=== PATIENT | female | born 1955 | race Caucasian/White ===

== ENCOUNTER → 2018-10-15 07:43 | Outpatient (CLI) | payer OTHER, SELFPAY ==
--- NOTE | 2018-10-15 | DI.MG.S_ITS ---
BILATERAL DIGITAL SCREENING MAMMOGRAM 3D/2D WITH CAD: 10/15/2018 CLINICAL: Routine screening. Comparison is made to exams dated: 10/30/2016 mammogram, 08/22/2015 mammogram, and 08/10/2014 mammogram - [facility]. There are scattered fibroglandular elements in both breasts. Current study was also evaluated with a Computer Aided Detection (CAD) system. There are benign calcifications in the left breast. There also are benign post operative findings in both breasts. No significant masses, calcifications, or other findings are seen in either breast. There has been no significant interval change. IMPRESSION: There is no mammographic evidence of malignancy. A 1 year screening mammogram is recommended. This exam was interpreted at Station ID: [id number]. NOTE: For mammograms, a report in lay terms will be sent to the patient. Approximately 15% of breast malignancies will not be visualized mammographically. In the management of a palpable breast mass, a negative mammogram must not discourage biopsy of a clinically suspicious lesion. Electronically Signed By: Horace garcia/elan:10/15/2018 10:14:25 copy to: [facility] STOCK[facility] letter sent: Normal Exam ACR BI-RADS Category 2: Benign Finding(s) 3342F
== END ==
PROVIDERS: Family Provider Naturopath; PCP Naturopath; Visit Provider Nurse Practitioner Obstetrics & Gynecology
DX: Z12.31 Encounter for screening mammogram for malignant neoplasm of breast (principal)
CPT/HCPCS: 77063; 77067

== ENCOUNTER → 2020-03-31 08:42 | Outpatient (CLI) | payer OTHER, SELFPAY ==
--- NOTE | 2020-03-31 | DI.MG.S_ITS ---
BILATERAL DIGITAL SCREENING MAMMOGRAM 3D/2D WITH CAD: 03/31/2020 CLINICAL: Routine screening. Comparison is made to exams dated: 10/15/2018 mammogram, 10/30/2016 mammogram, and 08/22/2015 mammogram - [facility]. There are scattered fibroglandular elements in both breasts. Current study was also evaluated with a Computer Aided Detection (CAD) system. There is a stable benign focal asymmetry in the right breast. There also are stable benign calcifications in the left breast. No significant masses, calcifications, or other findings are seen in either breast. There has been no significant interval change. IMPRESSION: BENIGN There is no mammographic evidence of malignancy. A 1 year screening mammogram is recommended. This exam was interpreted at Station ID: [id number]. NOTE: For mammograms, a report in lay terms will be sent to the patient. Approximately 15% of breast malignancies will not be visualized mammographically. In the management of a palpable breast mass, a negative mammogram must not discourage biopsy of a clinically suspicious lesion. Electronically Signed By: Henry Patiño acr/penrad:03/31/2020 12:45:10 copy to: [facility] STOCK[facility] letter sent: Normal Exam ACR BI-RADS Category 2: Benign Finding(s) 3342F
== END ==
PROVIDERS: Family Provider Naturopath; PCP Family Medicine; Referring Provider Family Medicine; Visit Provider Family Medicine
DX: Z12.31 Encounter for screening mammogram for malignant neoplasm of breast (principal)
CPT/HCPCS: 77063; 77067

== ENCOUNTER → 2020-05-02 12:41 | Outpatient (CLI) | payer OTHER, SELFPAY ==
--- NOTE | 2020-05-02 | DI.US.S_ITS ---
PROCEDURE: US RENAL COMPLETE INDICATIONS: PELVIC AND PERINEAL PAIN. TECHNIQUE: Real-time scanning was performed of the kidneys and bladder, with image documentation. COMPARISON: None. FINDINGS: Kidneys: Kidneys are normal in size. Right kidney measures 11.6 cm long; left kidney measures 11.4 cm long. Right renal cortical thickness is 1.2 cm; left renal cortical thickness is 1.1 cm. Renal cortical echotexture is normal. No hydronephrosis or nephrolithiasis. Small 0.3 x 0.4 x 0.3 centimeter hyperechoic lesion noted in the inferior lobe of the right kidney which may represent small renal angiomyolipoma. Bladder: Pre-void bladder volume is 370 mL. Post-void residual is 3 mL. Pre-void images demonstrate no intraluminal masses or stones. On pre-void images, both right and left ureteral jets are noted with color Doppler interrogation. (Of note, ureteral jets may not be detectable in up to 25% of cases due to insufficient differences in specific gravity between ureteral and bladder urine). Miscellaneous: No free pelvic fluid. IMPRESSION: 1. 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 2. Otherwise, normal renal sonogram. Dictated by: Leela Montes MD, PhD on 05/02/2020 at 16:44 Approved by: Leela Montes MD, PhD on 05/02/2020 at 16:46
== END ==
PROVIDERS: Family Provider Naturopath; PCP Family Medicine; Referring Provider Nurse Practitioner Family; Visit Provider Nurse Practitioner Family
DX: R10.2 Pelvic and perineal pain (principal)
CPT/HCPCS: 76770

== ENCOUNTER → 2020-05-25 08:08 | Outpatient (CLI) | payer MEDICARE, OTHER, SELFPAY ==
--- NOTE | 2020-05-25 | DI.MRI.S_ITS ---
PROCEDURE: MR ABDOMEN WO/W CON INDICATIONS: BENIGN LIPOMATOUS NEOPLASM OF KIDNEY TECHNIQUE: Coronal HASTE through abdomen and pelvis; axial 2D FLASH in- and [id number] (with and without fat saturation), and breath-hold T2 FSE from the hepatic dome to the bottom of the kidneys. Coronal HASTE MR urogram of kidneys and bladder. Dynamic coronal VIBE during IV gadolinium administration; postgadolinium axial VIBE or 2D FLASH with fat saturation from the hepatic dome through the kidneys. COMPARISON: [facility], , US RENAL COMPLETE, 05/02/2020, 13:07. FINDINGS: Image quality: Excellent. Genitourinary system: The kidneys are normal in size and enhancement. No suspicious solid masses. There is a miniscule, nonenhancing round T2 hyperintensity in the corticomedullary parenchyma of the right midpole laterally measuring 4 mm. This demonstrates low T1 signal on out of phase imaging, but no significant high T1 signal intensity. No enhancement. The calices appear normal. No hydronephrosis. Other solid organs: The liver, adrenal glands, spleen, and pancreas are normal. Normal gallbladder and biliary system. Nodes and vessels: Abdominal aorta and inferior vena cava are normal caliber. No retroperitoneal or mesenteric adenopathy. Bowel and peritoneum: The stomach and visible loops of bowel have a normal MR appearance. No evidence of obstruction. Lung bases: Normal heart size. No hiatal hernia. No basal effusions. Bones and soft tissues: Degenerative change at the L4-5 disc level within the vertebral bodies. Otherwise normal marrow signal. IMPRESSION: 1. Tiny right renal lesion, incompletely evaluated on MR secondary to its small size, likely a cyst based on MR characteristics. Lesion found on ultrasound is likely a tiny angiomyolipoma, in the correlation between two studies is questionable. Neither of these lesions are likely to be clinically significant at this size. Follow-up renal ultrasound in one year to assess for any size change could be considered. Dictated by: Rebecca Mathews M.D. on 05/25/2020 at 11:06 Approved by: Rebecca Mathews M.D. on 05/25/2020 at 11:25
== END ==
PROVIDERS: Family Provider Naturopath; PCP Family Medicine; Referring Provider Nurse Practitioner Family; Visit Provider Nurse Practitioner Family
DX: D17.71 Benign lipomatous neoplasm of kidney (principal)
CPT/HCPCS: 74183

== ENCOUNTER → 2021-04-26 07:53 | Outpatient (CLI) | payer MEDICARE, OTHER, SELFPAY ==
--- NOTE | 2021-04-26 | DI.MG.S_ITS ---
BILATERAL DIGITAL SCREENING MAMMOGRAM 3D/2D WITH CAD: 04/26/2021 CLINICAL: Routine screening. Comparison is made to exams dated: 03/31/2020 mammogram, 10/15/2018 mammogram, and 10/30/2016 mammogram - [facility]. There are scattered fibroglandular elements in both breasts. Current study was also evaluated with a Computer Aided Detection (CAD) system. There is a stable benign focal asymmetry in the right breast. There also are stable benign calcifications in the left breast. No significant masses, calcifications, or other findings are seen in either breast. There has been no significant interval change. IMPRESSION: BENIGN There is no mammographic evidence of malignancy. A 1 year screening mammogram is recommended. This exam was interpreted at Station ID: [id number]. NOTE: For mammograms, a report in lay terms will be sent to the patient. Approximately 15% of breast malignancies will not be visualized mammographically. In the management of a palpable breast mass, a negative mammogram must not discourage biopsy of a clinically suspicious lesion. Electronically Signed By: Bandar riley/elan:04/26/2021 09:11:32 copy to: [facility] letter sent: Normal Exam ACR BI-RADS Category 2: Benign Finding(s) 3342F
== END ==
PROVIDERS: Family Provider Naturopath; PCP Family Medicine; Referring Provider Family Medicine; Visit Provider Family Medicine
DX: Z12.31 Encounter for screening mammogram for malignant neoplasm of breast (principal)
CPT/HCPCS: 77063; 77067

== ENCOUNTER → 2021-06-29 07:49 | Outpatient (CLI) | payer MEDICARE, OTHER, SELFPAY ==
--- NOTE | 2021-06-29 | DI.US.S_ITS ---
PROCEDURE: US RENAL COMPLETE INDICATIONS: Benign lipomatous neoplasm of kidney TECHNIQUE: Real-time scanning was performed of the kidneys and bladder, with image documentation. COMPARISON: [facility], , US RENAL COMPLETE, 05/02/2020, 13:07. FINDINGS: Kidneys: Kidneys are normal in size. Right kidney measures 12.4 cm long; left kidney measures 11.6 cm long. Right renal cortical thickness is 1.9 cm; left renal cortical thickness is 1.5 cm. Renal cortical echotexture is normal. No hydronephrosis. 6.5 millimeter nonobstructing stone noted in the midpole of the right kidney. 5 x 3 millimeter hyperechoic lesion in the inferior lateral margin of the right kidney is not significantly changed compared to prior examination likely represents renal angiomyolipoma. Bladder: Pre-void bladder volume is 34 mL. Post-void residual is 0 mL. Pre-void images demonstrate no intraluminal masses or stones. On pre-void images, neither the right nor the left ureteral jets are noted with color Doppler interrogation. (Of note, ureteral jets may not be detectable in up to 25% of cases due to insufficient differences in specific gravity between ureteral and bladder urine). Miscellaneous: No free pelvic fluid. IMPRESSION: 1. 6.5 millimeter nonobstructing right renal stone. 2. No hydronephrosis. 3. 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 Dictated by: Leela Montes MD, PhD on 06/29/2021 at 10:37 Approved by: Leela Montes MD, PhD on 06/29/2021 at 10:39
== END ==
PROVIDERS: Family Provider Naturopath; PCP Family Medicine; Referring Provider Family Medicine; Visit Provider Family Medicine
DX: D17.71 Benign lipomatous neoplasm of kidney (principal); N20.0 Calculus of kidney
CPT/HCPCS: 76770

== ENCOUNTER → 2022-05-29 11:08 | Outpatient (CLI) | payer MEDICARE, OTHER, SELFPAY ==
--- NOTE | 2022-05-29 | DI.MG.S_ITS ---
BILATERAL DIGITAL SCREENING MAMMOGRAM 3D/2D WITH CAD: 05/29/2022 CLINICAL: Routine screening. Comparison is made to exams dated: 04/26/2021 mammogram, 03/31/2020 mammogram, 10/15/2018 mammogram, and 10/30/2016 mammogram - [facility]. There are scattered areas of fibroglandular density in both breasts (category b / 25%-50% glandular tissue). Current study was also evaluated with a Computer Aided Detection (CAD) system. No significant masses, calcifications, or other findings are seen in either breast. There has been no significant interval change. IMPRESSION: NEGATIVE There is no mammographic evidence of malignancy. A 1 year screening mammogram is recommended. Based on the Tyrer Cuzick model (a risk assessment model) the patient's lifetime risk is 4.7% and her 10 year risk is 2.5%. According to the ACR, ACS, and NCCN guidelines, an annual breast MRI exam along with mammogram is recommended if the patient's lifetime risk is 20% or greater. This exam was interpreted at Station ID: [id number]. NOTE: For mammograms, a report in lay terms will be sent to the patient. Approximately 15% of breast malignancies will not be visualized mammographically. In the management of a palpable breast mass, a negative mammogram must not discourage biopsy of a clinically suspicious lesion. Electronically Signed By: Jam martell/elan:05/29/2022 16:30:05 copy to: [facility] letter sent: Normal Exam ACR BI-RADS Category 1: Negative 3341F
== END ==
PROVIDERS: Family Provider Naturopath; PCP Family Medicine; Referring Provider Family Medicine; Visit Provider Family Medicine
DX: Z12.31 Encounter for screening mammogram for malignant neoplasm of breast (principal)
CPT/HCPCS: 77063; 77067

== ENCOUNTER → 2022-08-29 11:30 | Outpatient (CLI) | payer MEDICARE, OTHER, SELFPAY ==
--- NOTE | 2022-08-29 11:35 | DI.RAD.S_ITS ---
Bone Density Report Name: KVNG SCOTT Age: 67 Sex: Female Ethnicity: White Date of : 1955 Indication: postmenopausal; screening for osteoporosis; parental hip fracture; Referring Provider: MARIO GASPAR Study: Bone densitometry was performed. Exam Date: August 29, 2022 Accession number: [id number] Bone Density: Region BMD T-score Z-score Classification AP Spine(L1-L4) 0.937 -1.0 0.9 Normal Femoral Neck (Left) 0.720 -1.2 0.5 Osteopenia Total Hip (Left) 0.902 -0.3 1.0 Normal Femoral Neck (Right) 0.745 -0.9 0.7 Normal Total Hip (Right) 0.890 -0.4 0.9 Normal Total Hip Mean 0.896 -0.4 1.0 Normal World Health Organization criteria for BMD impression classify patients as: Normal (T-score at or above -1.0), Osteopenia (T-score between -1.0 and -2.5), or Osteoporosis (T-score at or below -2.5). 10-year Fracture Risk(1): Major Osteoporotic Fracture 16% Hip Fracture 1.3% Reported Risk Factors: [place] (), Neck BMD=0.720, BMI=25.1, parental fracture (1) FRAX(R) Version 3.08. Fracture probability calculated for an untreated patient. Fracture probability may be lower if the patient has received treatment. Previous Exams: -- Region Exam Age BMD T-score BMD Change BMD Change Date g/cm2 vs Baseline vs Previous -- AP Spine (L1-L4) 08/29/2022 67 0.937 -1.0 -0.229 (-19.7%)# -0.229 (-19.7%)# 05/12/2006 50 1.166 1.1 Total Hip(Left) 08/29/2022 67 0.902 -0.3 -0.127 (-12.4%)# -0.127 (-12.4%)# 05/12/2006 50 1.029 0.7 Total Hip(Right) 08/29/2022 67 0.890 -0.4 -0.178 (-16.7%)# -0.178 (-16.7%)# 05/12/2006 50 1.067 1.0 -- *Denotes significance at 95% confidence level, LSC for AP Spine = 0.022 g/cm2, LSC for Total Hip = 0.027 g/cm2 # Denotes dissimilar scan types or analysis methods Impression: The patient has low bone mass, based on the Left Femoral Neck T-score. The patient has an estimated ten-year risk of hip fracture of 1.3% and an estimated ten-year risk of major fracture of 16%, based on the WHO FRAX algorithm. The patient has risk factors, including: parental hip fracture. No significant bone loss was observed. Discussion: BONE DENSITY IS LOW AT ONE OR MORE SKELETAL SITES. This patient's lowest T-score is low at one or more skeletal sites. It meets the World Health Organization's (WHO) criteria for low bone mass (T-score between -1.0 and -2.5). The patient's 10-year risk of fracture as calculated by FRAX is less than the threshold where pharmacological therapy is recommended by the National Osteoporosis Foundation (NOF). However, all treatment decisions require clinical judgment and consideration of individual patient factors, including patient preferences, comorbidities, previous drug use, risk factors not captured in the FRAX model (e.g., frailty, falls, vitamin D deficiency, increased bone turnover, interval significant decline in bone density) and possible under or overestimation of fracture risk by FRAX. The patient should follow a healthful lifestyle (good nutrition with adequate calcium and vitamin D, and appropriate weight-bearing exercise). Follow-Up: Consider repeating this study in 2 to 3 years to reassess this patient's status, or sooner if there is some new clinical indication. Reported by: SHANNA WATT M.D. on 08/29/2022 12:46:00 PM.
== END ==
PROVIDERS: Family Provider Naturopath; PCP Family Medicine; Referring Provider Internal Medicine; Visit Provider Internal Medicine
DX: Z78.0 Asymptomatic menopausal state (principal); Z13.820 Encounter for screening for osteoporosis; M85.852 Other specified disorders of bone density and structure, left thigh
CPT/HCPCS: 77080

== ENCOUNTER → 2022-11-14 10:13 | Outpatient (CLI) | payer MEDICARE, OTHER, SELFPAY ==
--- NOTE | 2022-11-14 | DI.RAD.S_ITS ---
PROCEDURE: XR CHEST 2V INDICATIONS: PRECORDIAL PAIN TECHNIQUE: 2 views of the chest were acquired. COMPARISON: [facility], , CHEST 1 VIEW, 10/13/2015, 13:34. FINDINGS: Surgical changes and devices: None. Lungs and pleura: Lungs are clear. No pleural effusions or pneumothorax. Mediastinum: Mediastinal contours are normal. Heart size is normal. Bones and chest wall: No suspicious bony abnormalities. Soft tissues appear unremarkable. IMPRESSION: No acute cardiopulmonary abnormality is seen. Dictated by: Pablo Garay M.D. on 11/14/2022 at 12:30 Approved by: Pablo Garay M.D. on 11/14/2022 at 12:31
== END ==
PROVIDERS: Family Provider Naturopath; PCP Family Medicine; Referring Provider Family Medicine; Visit Provider Family Medicine
DX: R07.2 Precordial pain (principal)
CPT/HCPCS: 71046

== ENCOUNTER → 2022-11-29 09:44 | Outpatient (CLI) | payer MEDICARE, OTHER, SELFPAY ==
--- NOTE | 2022-11-29 20:11 | DI.NM.S_ITS ---
DATE OF SERVICE: 11/29/2022 PROCEDURE: Exercise treadmill stress and rest myocardial perfusion imaging study with gating to assess ejection fraction and regional wall motion. ORDERING PROVIDER: Luke Queen MD. INDICATIONS: The patient is a 67-year-old hypertensive female with atypical chest and jaw discomfort. CARDIAC STRESS: The patient was able to exercise for 8 minutes, 16 seconds on a standard Kam protocol, suggesting excellent exercise capacity with an MEJIA of -35%, achieving 10.1 METS. She had a normal heart rate response to exercise, achieving a maximum of 162 BPM (106% of her predicted maximum). She had a borderline hypertensive blood pressure response with a resting blood pressure of 130/80 that increased to a maximum of 200/90. Her resting ECG shows a sinus rhythm with borderline repolarization abnormality that becomes slightly accentuated with stress with [address] depression that resolves within 1 minute of recovery and thus is nonspecific for ischemia. There were no arrhythmias. At 7 minutes, 15 seconds of exercise at a heart rate of 157 BPM, 27.5 mCi of technetium-99m Myoview was injected and she was imaged 10 minutes later using a gated SPECT acquisition protocol. Earlier in the day while at rest, she had been injected with 11.3 mCi of technetium-99m Myoview was imaged 20 minutes later, again using a gated SPECT acquisition protocol. FINDINGS: 1. Raw data: There is fairly good myocardial tracer uptake, although breast shadows are noted, particularly on the resting images. The lung/heart ratio is normal at 0.34 with a normal TID ratio of 0.82. 2. Quantitated gated SPECT: Post-stress ejection fraction is 84% without any focal wall motion abnormality. Resting ejection fraction is 76% with a normal resting end-diastolic volume of 63 mL. 3. Myocardial perfusion imaging: Post-stress supine images shows a fairly normal myocardial perfusion pattern without any concerning perfusion defects, supported by normal perfusion imaging in the prone position. The resting images show a modest defect in the distal portion of the left ventricle, likely reflecting breast attenuation artifact, but there are no areas of significant improvement. IMPRESSION: 1. Normal myocardial perfusion study. 2. No evidence for any myocardial ischemia or previous myocardial infarction. 3. Normal left ventricular size and function without any focal wall motion abnormality. 4. Excellent exercise capacity without angina or significant ECG evidence of ischemia. She had a borderline hypertensive blood pressure response to exercise. Jos, May Pratima/codey doc#: [id number]/job#: [id number] dd: 11/29/2022 17:09:00 dt: 11/29/2022 19:52:00 DICTATING MD/COPIES TO: Luke Malone MD; Luke Queen MD COPIES MNE: MARIKA;
== END ==
PROVIDERS: Family Provider Naturopath; PCP Family Medicine; Referring Provider Family Medicine; Visit Provider Family Medicine
DX: R07.9 Chest pain, unspecified (principal)
CPT/HCPCS: 78452; 93017; A9502

== ENCOUNTER → 2023-06-25 16:27 | Outpatient (CLI) | payer MEDICARE, OTHER, SELFPAY ==
--- NOTE | 2023-06-25 16:28 | DI.MG.S_ITS ---
BILATERAL DIGITAL SCREENING MAMMOGRAM 3D/2D WITH CAD: 06/25/2023 CLINICAL: Routine screening. Comparison is made to exams dated: 05/29/2022 mammogram, 04/26/2021 mammogram, and 03/31/2020 mammogram - [facility]. There are scattered areas of fibroglandular density in both breasts (category b / 25%-50% glandular tissue). Current study was also evaluated with a Computer Aided Detection (CAD) system. No significant masses, calcifications, or other findings are seen in either breast. There has been no significant interval change. IMPRESSION: NEGATIVE There is no mammographic evidence of malignancy. A 1 year screening mammogram is recommended. Based on the Tyrer Cuzick model (a risk assessment model) the patient's lifetime risk is 4.5% and her 10 year risk is 2.5%. According to the ACR, ACS, and NCCN guidelines, an annual breast MRI exam along with mammogram is recommended if the patient's lifetime risk is 20% or greater. This exam was interpreted at Station ID: [id number]. NOTE: For mammograms, a report in lay terms will be sent to the patient. Approximately 15% of breast malignancies will not be visualized mammographically. In the management of a palpable breast mass, a negative mammogram must not discourage biopsy of a clinically suspicious lesion. Electronically Signed By: Horace garcia/elan:06/26/2023 07:30:58 letter sent: Normal Exam ACR BI-RADS Category 1: Negative 3341F
== END ==
LOC: MAMMO 16:28
PROVIDERS: Family Provider Naturopath; PCP Family Medicine; Referring Provider Family Medicine; Visit Provider Family Medicine
DX: Z12.31 Encounter for screening mammogram for malignant neoplasm of breast (principal); R92.323 Mammographic fibroglandular density, bilateral breasts
CPT/HCPCS: 77063; 77067

== ENCOUNTER → 2024-06-29 08:24 | Outpatient (CLI) | payer MEDICARE, OTHER, SELFPAY ==
--- NOTE | 2024-06-29 08:25 | DI.MG.S_ITS ---
MM screening mammo BI: 06/29/2024. BI-RADS: 1 CLINICAL: 69-year old female for bilateral screening mammogram. Tyrer-Cuzick lifetime risk of 2.9%. No personal or first-degree family history of breast cancer. The patient is status-post reduction mammoplasty. PRIOR EXAMS 06/25/2023, 05/29/2022, 04/26/2021, 03/31/2020, 10/15/2018, 10/30/2016, 08/22/2015, 08/10/2014. MAMMOGRAPHY TECHNIQUE: 2D and 3D (tomosynthesis) digital mammographic views obtained, with additional images as needed for full coverage. Current study was also evaluated with a Computer Aided Detection (CAD) system. DENSITY B. There are scattered areas of fibroglandular density. MAMMOGRAPHY FINDINGS Bilateral: No suspicious mass, asymmetry, microcalcification, or other abnormality seen. IMPRESSION: * No evidence of malignancy. RECOMMENDATIONS Bilateral * Annual screening mammography. OVERALL ASSESSMENT CATEGORY BI-RADS-1: Negative. The [employer] recommends annual screening mammography beginning at age 40 for women with average risk of breast cancer. ELECTRONICALLY SIGNED: Horace Gomez M.D. on 06/30/2024 at 07:45:38 AM PT Interpreting Station ID: [id number]
== END ==
LOC: MAMMO 08:25
PROVIDERS: Family Provider Naturopath; PCP Family Medicine; Referring Provider Family Medicine; Visit Provider Family Medicine
DX: Z12.31 Encounter for screening mammogram for malignant neoplasm of breast (principal); Z98.890 Other specified postprocedural states
CPT/HCPCS: 77063; 77067